=== PATIENT | male | born 1955 | race Caucasian/White ===

== ENCOUNTER 2018-06-07 09:03 | Outpatient (CLI) | payer BC, SELFPAY ==
--- NOTE | 2018-06-07 08:19 | DI.RAD_ITS ---
SYMPTOMS/DIAGNOSIS: LT KNEE PAIN LEFT KNEE: Three views were obtained. There is marked narrowing of the cartilaginous joint space of the lateral patellofemoral joint with valgus angulation of the knee. There are very prominent hypertrophic and sclerotic changes involving the adjacent bones at the lateral tibiofemoral joint. 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
== END 2018-06-07 09:23 ==
PROVIDERS: PCP Family Medicine; Visit Provider Physician Assistant
DX: M25.562 Pain in left knee (principal); M17.12 Unilateral primary osteoarthritis, left knee
CPT/HCPCS: 73562

== ENCOUNTER 2019-04-18 08:01 | Outpatient (CLI) | payer MEDICARE, BC, SELFPAY ==
[2019-04-18 08:21] LABS: HCT 46.1 % (40.0-50.0); HGB 15.9 g/dL (13.5-17.5); Mean Corp. HGB Concentration 34.5 g/dL (32.0-36.0); Mean Corpuscular Hemoglobin 30.4 pg (27.0-33.0); Mean Corpuscular Volume 88.1 fL (80-95); Mean Platelet Volume 8.5 fL (8.0-11.0); Platelet Count 243 x1000/uL (130-400); RBC 5.23 m/cumm (4.50-6.00); RBC Distribution Width 12.5 % (11.8-14.1); White Blood Cell Count 5.74 k/cumm (4.4-10.8)
[2019-04-18 09:28] LABS: ALT 31 U/L (16-63); AST 15 U/L (15-37); Albumin 3.9 g/dL (3.4-5.0); Alkaline Phosphatase 102 U/L (46-116); Anion Gap 7.1 mmol/L (3-11); BUN 19 mg/dL (7-18); Bilirubin, Total 0.7 mg/dL (0.2-1.0); CO2 32.9 mmol/L (21.0-32.0); CREATININE 0.88 mg/dL (0.70-1.30); Calcium 8.6 mg/dL (8.5-10.1); Calculated LDL 85 mg/dL; Chloride 102 mmol/L (98-107); Cholesterol 156 mg/dL (<200); Glucose 91 mg/dL (74-106); HDL Cholesterol 61 mg/dL (40-60); Potassium 4.6 mmol/L (3.5-5.1); Sodium 142 mmol/L (136-145); Total Protein 7.4 g/dL (6.4-8.2); Triglyceride 51 mg/dL (<150)
== END 2019-04-18 08:21 ==
PROVIDERS: PCP Family Medicine; Visit Provider Family Medicine
DX: R10.9 Unspecified abdominal pain (principal); E66.3 Overweight; Z13.6 Encounter for screening for cardiovascular disorders
CPT/HCPCS: 36415; 80053; 80061; 85027

== ENCOUNTER → 2019-05-25 13:29 | Outpatient (BNVA) | payer MEDICARE, BC, SELFPAY | PROVIDERS: PCP Family Medicine; Referring Provider Family Medicine; Visit Provider Physical Therapy Assistant | DX: Z12.11 Encounter for screening for malignant neoplasm of colon (principal); Z80.0 Family history of malignant neoplasm of digestive organs ==

== ENCOUNTER 2019-06-28 06:08 | Day surgery (SDC) | payer MEDICARE, BC, SELFPAY ==
--- NOTE | 2019-06-27 12:29 | W.PM.HP.N ---
Date of service: 06/28/19 Time of Service: 07:30 Assessment and Plan Assessment and plan (1) Family history of colon cancer in mother: Status: Acute Assessment and plan: Informed consent is obtained for the procedural (explained in simple layman's terms that the pt and/or family could understand) explaining risks vs benefits and alternatives to the procedure and consequences if we do not do the procedure and need/rational for the procedure. Risks include but are not limited to: bleeding, infection, perforation of esophagus, stomach, colon, small intestines, bronchus or trachea, or PTX. This would necessitate emergency surgery to repair the damage w/ possible ostomy; and other associated complications w/ the required surgery. Also complications of anesthesia including aspiration, WI/CVA/. History of Present Illness Consults Consult date: 06/28/19 Narrative: The patient is here for Colonoscopy pre-op. His last screening was in 2013 and was unremarkable. He has a family history of colon cancer in his mother. He has not had any bowel habit changes. -Discussed colonoscopy bowel prep as well as the procedure. Discussed possible complications of the procedure to include bleeding, pain, perforation, missed small lesion/polyp, sore throat, aspiration and adverse reaction to the medications. Questions were answered to patient?s satisfaction. No guarantees were implied or given. no cp or SOB. no abdom pain. no headaches or vision changes. 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 no abdom pain. completed prep w/ no problems. No changes in meds or health statues since he saw [facility] in the office Review of Systems All systems reviewed & are unremarkable except as noted in HPI and below PFSH Medical History Family history of colon cancer in mother (Acute) Peyronie disease (Chronic) Suspecte Surgical History Colonoscopy - IV Sedation (03/29/14) Dr Starks S/P total knee arthroplasty (Acute) Right Family History Mother Colon cancer Social History Smoking/Tobacco Use Status: Former Tobacco Use Alcohol Intake: current Alcohol Intake frequency: a few times a week Alcohol type: beer and hard liquor Drug use: Never Do you feel safe at home: Yes Do you feel safe in your relationship?: Yes Meds Home Medications and Allergies Home Medications Medication Instructions Recorded Confirmed Type multivitamin 1 cap PO DAILY 10/12/13 06/28/19 History cetirizine [Zyrtec] 10 mg PO DAILY tab 01/11/14 06/28/19 History glucosamine qpz-olfvdialec-ate 1 tab PO DAILY 03/29/14 06/28/19 History Offloader Knee Brace u #1 05/11/17 06/07/18 Clinic Ascorbic Acid [Vitamin C] 1,000 mg PO DAILY 06/22/17 06/28/19 History acetaminophen [Mapap Extra 1,000 mg PO Q8H #100 tab 09/09/17 06/28/19 Rx Strength] aspirin 81 mg PO BID #80 tabec 09/09/17 06/28/19 Rx bisacodyl 5 mg tablet,delayed 5 mg PO ONCE #4 tab 05/25/19 06/28/19 Rx release polyethylene glycol 3350 17 238 g PO ONCE #238 gm 05/25/19 06/28/19 Rx gram/dose oral powder varicella-zoster [id number] (PF) 50 50 mcg IM ONCE #1 each 06/08/19 06/08/19 Rx mcg/0.5 mL IM susp, kit Allergies Allergy/AdvReac Type Severity Reaction Status Date / Time No Known Drug Allergies Allergy Verified 06/22/19 14:27 Exam Const General: cooperative, healthy appearing, comfortable, no acute distress, well developed and well groomed Nutritional Appearance: average body habitus and well nourished Orientation: alert, awake and oriented x3 HENFL Head: normal to inspection, normocephalic and atraumatic Ears: hearing grossly normal bilaterally and external ears normal General nose exam: external nose normal Face and sinus: normal facial exam and sinuses nontender Mouth: oral mucosae normal, lip normal, tongue normal and moist mucous membranes Teeth and gingiva: dentition normal Eyes General: appearance normal, both eyes and all related structures Conjunctivae: conjunctivae normal Sclera: sclerae normal Pupils: PERRL Neck Neck: normal visual inspection and full ROM Chest Chest: normal inspection of the chest Resp Effort & Inspection: normal respiratory effort, able to speak in complete sentences, no cough, no nasal flaring, not tachypneic and no use of accessory muscles Auscultation: clear to auscultation bilaterally, no rales, no rhonchi and no wheezes Cardio Jugular venous pressure: no JVD Rate: regular rate Rhythm: regular rhythm GI Inspection: normal to inspection, no edema and non-distended Palpation: soft, no masses, nontender and No ascites Auscultation: normal bowel sounds Skin General skin exam: no rashes or lesions noted Trauma: no lacerations or abrasions Neuro General: alert, oriented x3, oriented, gait normal, moves all extremities, no focal motor deficits and CN's II-XI intact bilaterally Cognition: normal cognition Speech: speech normal Gait: normal gait Motor: muscle tone normal throughout Extrem General: normal to inspection, full ROM and no clubbing, cyanosis or edema Psych Appearance: grossly normal and well kempt Mental Status: mental status grossly normal Speech and Movement: speech and movement normal Affect: normal affect
[2019-06-28 06:32] VITALS: BP 129/90; PULSE 66; RESP 16; TEMP 36.5; O2SAT 99
[2019-06-28] MEDS: Lactated Ringers 1,000 ML 80 ML IV (06:54)
--- NOTE | 2019-06-28 08:11 | W.COLOREPORT ---
Date of service: 06/28/19 Time of Service: 08:12 Colonoscopy Report Date of procedure: 06/28/19 Pre-op diagnosis general: + family hx of CRC Post-op diagnosis procedure note: other (diverticula ) Procedure: CE Surgeon: Lisa Hernandes Anesthesia proc note operative: GETA Estimated blood loss (mL): 0 Pathology: none sent Complications: None Disposition: same day Prep: Miralax/Dulcolax Retraction Time: 10 mins Procedure Description: After informed consent was obtained the patient was taken to the procedure room and placed in a left decubitous position. Monitors were applied and a time out was done. The patients name, date of , procedure, allergies to medications and metal in their body was reviewed. The patient was then sedated. Once sedated and comfortable a rectal exam was done. External exam was normal. Internal exam revealed a normal sphincter tone and no palpable masses. Not palpable. The scope was then introduced and retrofelexed. No internal hemorrhoids were identified. The scope was then advanced to the cecum w/ out difficulty. The TI and appendiceal orifice were identified. The prep was good . The scope was then slowly retracted over 10 minutes back into the rectum. No polyps or AVMs noted. Has minor diverticula confined to the sigmoid colon. No signs of active bleeding or infection. Otherwise the colon is normal in the mucosa is pink and healthy and normal vasculature. The scope was removed and the patient was woken up and taken back to Same day surgery in stable condition. The patient tolerated the procedure well and there were no immediate complications. Follow up: The patient does not require any further colonoscopies, unless they develop changes in bowel habits or other new gastrointestinal complaints.
--- NOTE | 2019-06-28 08:14 | W.PM.DSUDISC ---
Discharge Plan Disposition Patient Disposition: HOME Condition: Good Discharge Details Reason For Visit: colon scope Attending Provider: Lisa Hernandes Primary Care Provider: Espinoza Mcgee Home Meds and New Rx's Prescriptions: Continued Shingrix (PF) 50 mcg/0.5 mL suspension for reconstitution 50 mcg IM ONCE Qty: 1 RF: 1 cetirizine [Zyrtec] 10 MG tablet 10 mg PO DAILY RF: 0 Offloader Knee Brace Qty: 1 RF: 0 Ascorbic Acid [Vitamin C] 500 MG capsule 1,000 mg PO DAILY RF: 0 multivitamin 1 EACH capsule 1 cap PO DAILY RF: 0 glucosamine [id number]-crt 1 EACH capsule 1 tab PO DAILY RF: 0 aspirin 81 MG tablet,delayed release (DR/EC) 81 mg PO BID Qty: 80 RF: 0 acetaminophen [Mapap Extra Strength] 500 MG tablet 1,000 mg PO Q8H Qty: 100 RF: 3 Discontinued polyethylene glycol 3350 17 gram/dose powder 238 g PO ONCE Qty: 238 RF: 0 bisacodyl [Dulcolax (bisacodyl)] 5 mg tablet,delayed release (DR/EC) 5 mg PO ONCE Qty: 4 RF: 0 Discharge Instructions Instructions: Diverticulosis (GEN), High Fiber Diet (GEN) Additional Instructions: Findings: few diverticula of colon. Follow high fiber diet and avoid straining to move your bowels. Follow up:if any pain or difficulty having a BM, persistent rectal bleeding, unexplained wt loss. Please call if you develop: fevers >101.5 Nausea or Vomiting Abdominal pain that is not transient DAY SURGERY UNIT POST COLONOSCOPY INSTRUCTIONS 1. Because there will be medication in your system for the next 24 hours, you may feel a little sleepy. Your coordination will be affected. Therefore: a. Do not drive or operate dangerous equipment for 24 hours. b. Do not drink alcohol beverages for 24 hours (not even beer). c. Plan to go home and rest for the day. 2. Generally there are no restrictions on your activity after a day or so has gone by, but you may feel a bit fatigued for a few days. 3 After you arrive home you may have a light meal and return to a normal diet as you can tolerate it without feeling sick to your stomach. 4. After surgery, you may feel pain or discomfort. This should be only transient, but if it persists please contact your doctor. 5. If there are any questions regarding the findings of your procedure, please feel free to contact your doctor. 6. If you are unable to contact your doctor with a problem, contact the hospital at [phone]. 7. Continue all your regular medications unless directed otherwise. I understand the above instructions and have no questions. Signature of Patient or Responsible Adult Escort Date/Time Name of Responsible Adult Escort Signature of Nurse Date/Time Activity:: No lifting over 20 pounds or strenuous activity x24 hours as he thinks Diet:: Small light meals x24 hours Discharge Orders Discharge Orders: Discharge Order (Routine); Ordered 06/28/19 Ordered By: Lisa Hernandes DS: Diagnosis Discharge Diagnosis (1) Family history of colon cancer in mother: Status: Acute (2) Diverticula of colon: Status: Acute
[2019-06-28 08:43] VITALS: BP 127/81; PULSE 51; RESP 17; TEMP 36.3; O2SAT 98
== END 2019-06-28 09:07 | disposition home or self-care (01) ==
PROVIDERS: PCP Family Medicine; Visit Provider Surgery
PROC: 0DJD8ZZ Inspection of Lower Intestinal Tract, Via Natural or Artificial Opening Endoscopic (ICD-10-PCS; CPT 45378; principal; 2019-06-28 07:30)
DX: Z12.11 Encounter for screening for malignant neoplasm of colon (principal); Z80.0 Family history of malignant neoplasm of digestive organs; K57.30 Diverticulosis of large intestine without perforation or abscess without bleeding
CPT/HCPCS: G0105; NC; J2001; J2250; J3010

== ENCOUNTER → 2020-02-25 07:57 | Outpatient (BNVA) | payer MEDICARE, BC, SELFPAY | PROVIDERS: PCP Family Medicine; Referring Provider Family Medicine; Visit Provider Student in an Organized Health Care Education/Training Program | DX: M76.71 Peroneal tendinitis, right leg (principal) | CPT/HCPCS: 99213 ==